=== PATIENT | female | born 1960 | race Caucasian/White ===

== ENCOUNTER 2017-11-14 11:55 | Emergency (ER) | payer OTHER ==
[2017-11-14 12:02] VITALS: TEMP 99.3; BMI 25.2
--- NOTE | 2017-11-14 12:23 | PDOC ---
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 She woke up this morning with chest tightness, throat swelling, and a productive cough. The patient is also complaining of myalgias in her upper extremities. She denies any recent surgeries, hemoptysis, long car rides/plane trips, unilateral swelling. She denies CP but describes whole chest tightness. She denies any SOB, fever, chills, nausea, vomiting, abd pain. Past History - Past Medical History Allergies/Adverse Reactions: Allergies Allergy/AdvReac Type Severity Reaction Status Date / Time No Known Allergies Allergy Unverified 11/14/17 11:56 Home Medications: Ambulatory Orders Dexamethasone 0 mg PO ASDIR 11/14/17 Dexamethasone [Decadron -] 4 mg PO ONCE #10 tablet MDD 1 11/14/17 Enalapril Maleate 5 mg PO DAILY 11/14/17 FENTANYL 25mcg PATCH [DURAGESIC 25mcg PATCH -] 1 each TD Q72H 11/14/17 Gabapentin 300 mg PO TID 11/14/17 Metformin HCl 500 mg PO BID 11/14/17 Oxycodone HCl 5 mg PO TID 11/14/17 Cancer: Yes (tongue, neck lymph nodes) COPD: No Diabetes: Yes HTN: Yes Hypercholesterolemia: Yes - Surgical History Abdominal Surgery: Yes (ovarian cyst) - Suicide/Smoking/Psychosocial Hx Smoking History: Never smoked Have you smoked in the past 12 months: No Information on smoking cessation initiated: No Hx Alcohol Use: No Drug/Substance Use Hx: No Substance Use Type: None Review of Systems - Review of Systems Able to Perform ROS?: Yes Comments:: 11/14/17 13:34 GENERAL/CONSTITUTIONAL: No fever or chills. No weakness. HEAD, EYES, EARS, NOSE AND THROAT: Positive for throat swelling. No change in vision. No ear pain or discharge. No sore throat. GASTROINTESTINAL: No nausea, vomiting, diarrhea, constipation, or abdominal pain. GENITOURINARY: No dysuria, frequency, hematuria, or change in urination. CARDIOVASCULAR: Positive for chest tightness. No chest pain, palpitations, or lightheadedness. RESPIRATORY: Positive for productive cough. No wheezing, shortness of breath, or hemoptysis. MUSCULOSKELETAL: No joint or muscle swelling or pain. No neck or back pain. SKIN: No rash or lesions. NEUROLOGIC: No headache, numbness, tingling, weakness, loss of consciousness, or change in strength/sensation. ENDOCRINE: No increased thirst. No abnormal weight change. HEMATOLOGIC/LYMPHATIC: No anemia, easy bleeding, or history of blood clots. ALLERGIC/IMMUNOLOGIC: No hives or skin allergy. Is the patient limited Latvian proficient: No *Physical Exam - Vital Signs Last Vital Signs Temp Pulse Resp BP Pulse Ox 99.3 F 114 H 18 157/65 97 11/14/17 11:57 11/14/17 11:57 11/14/17 11:57 11/14/17 11:57 11/14/17 11:57 - Physical Exam Comments: 11/14/17 13:38 GENERAL: Well developed, well nourished. Awake and alert. No acute distress. HEENT: Normocephalic, atraumatic. Hearing grossly normal. Moist mucous membranes. PERRLA, EOMI. Nonerythematous, nonexudative oropharnyx. Thrush seen on tongue. NECK: Supple. Full ROM. No JVD. B/l lymphadenopathy. CARDIOVASCULAR: Regular rate and rhythm. No murmurs, rubs, or gallops. PULMONARY: No evidence of respiratory distress. Lungs clear to auscultation bilaterally. No wheezing, rales or rhonchi. ABDOMINAL: Soft. Non-tender. Non-distended. No rebound or guarding. GENITOURINARY: No CVA tenderness bilaterally. MUSCULOSKELETAL: Normal range of motion at all joints. No bony deformities or tenderness. EXTREMITIES: No cyanosis. No clubbing. No edema. No calf tenderness. SKIN: Warm and dry. Normal capillary refill. No rashes. No jaundice. NEUROLOGICAL: Alert, awake, appropriate. Cranial nerves 2-12 intact. Normal speech. Gait is normal without ataxia. PSYCHIATRIC: Cooperative. Good eye contact. Appropriate mood and affect. ED Treatment Course - LABORATORY CBC & Chemistry Diagram: 11/14/17 12:40 11/14/17 12:40 - RADIOLOGY Radiology Studies Ordered: Category Date Time Status CHEST CTA [CT] Stat CT Scan 11/14/17 12:21 Ordered Medical Decision Making - Medical Decision Making 11/14/17 13:57 The patient is a 57F who has a PMH of tongue cancer s/p 3 chemo (last yesterday ) and 2 radiation (last yesterday) sessions. She is presenting with chest tightness and throat swelling. I am concerned for an infectious process 2/2 to her immunocompromised state. I am also concerned for a PE due to hx of cancer and tachycardia. Because she is not able to mount an immune response, I have ordered the septic protocol and chest CTA and neck CT w/o contrast to visualize the airway. The patient's voice is slightly muffled so I am concerned for airway compromise. Will monitor closely. 11/14/17 14:02 Pt has a WBC of 17.7, influenza negative. Pending CT reads. 11/14/17 14:27 Dr. Tejada (ENT) has seen the patient at bedside and scoped them. He does not see any compromise in the patient's airway. He suggests discussed with the patient's rad/onc for further issues with swallowing. 11/14/17 14:31 Chest CTA read: There is no evidence of a pulmonary embolus in the main pulmonary artery and its proximal bifurcations, bilaterally. Multiple calcified mediastinal and bilateral hilar lymph nodes as well as a tiny calcified nodule in the right upper and middle lobe compatible with old granulomatous disease. Mild at atelectatic and bronchiectatic changes in the right middle lobe, medially without gross focal infiltrates. Neck soft tissue read: 1. Posttherapy changes in the neck with mild narrowing of the supraglottic laryngeal airway as described above. 2. Malignant right level 2A lymph node measuring 2.4 x 2.3 cm. 11/14/17 14:42 My attending spoke with the patient's rad/onc who agrees with our plan. We have given steroids. Will d/c the patient with steroids until the patient can follow up with rad/onc. 11/14/17 14:53 I have spoken with Dr. Landa and she would like the patient d/c with 10 days of 4mg of decadron and will f/u with the patient tomorrow. *DC/Admit/Observation/Transfer Diagnosis at time of Disposition: Swallowing difficulty Qualifiers: Dysphagia type: unspecified Qualified Code(s): R13.10 - Dysphagia, unspecified - Discharge Dispostion Disposition: HOME Condition at time of disposition: Stable Admit: No - Referrals Referrals: Candelario Jaramillo MD [Primary Care Provider] - - Patient Instructions Printed Discharge Instructions: DI for Chemotherapy -- Adult Additional Instructions: Please return to the ER if symptoms persist, worsen, or new symptoms arise. Please follow up with Dr. Landa in 2-3 days. Please return to the ER if you have any signs or symptoms of chest pain, shortness of breath, uncontrollable fever, chills, nausea, vomiting, numbness, tingling, or weakness in any part of your body, changes in vision, or slurred speech. Please take your medications as prescribed. - Post Discharge Activity
[2017-11-14] MEDS ORDERED: DEXAMETHASONE SOD PHOSPHATE 20 MG/5 ML VIAL IVPB ONE (12:49)
[2017-11-14 12:59] LABS: BASO % 0.4 % (0-2.0); EOS % 0.2 % (0-4.5); HEMATOCRIT 37.9 % (32.4-45.2); HEMOGLOBIN 12.2 GM/dL (10.7-15.3); LYMPH % 4.9 % (8-40); MCH 29.7 pg (25.7-33.7); MCHC 32.1 g/dl (32.0-36.0); MEAN CELL VOLUME 92.6 fl (80-96); MEAN PLT VOLUME 9.2 fl (7.5-11.1); MONO % 5.2 % (3.8-10.2); NEUT % 89.3 % (42.8-82.8); PLATELET COUNT 366 K/MM3 (134-434); RDW 13.5 % (11.6-15.6); WHITE BLOOD COUNT 17.7 K/mm3 (4.0-10.0)
[2017-11-14 13:08] LABS: INR 1.04 (0.82-1.09); PROTHROMBIN TIME (PATIENT) 11.8 SEC (9.98-11.88)
[2017-11-14] MEDS ORDERED: DEXAMETHASONE SOD PHOSPHATE 10 MG/1 ML VIAL ONE (13:10)
[2017-11-14 13:11] LABS: ACTIVATED PTT 28.3 SECONDS (26.9-34.4)
[2017-11-14 13:17] LABS: ALBUMIN 3.7 g/dl (3.4-5.0); ANION GAP 8 (8-16); BILIRUBIN,TOTAL 0.5 mg/dL (0.2-1.0); BLOOD UREA NITROGEN 14 mg/dL (7-18); CALCIUM 8.9 mg/dL (8.5-10.1); CHLORIDE 104 mmol/L (98-107); CO2 26 mmol/L (21-32); CREATININE 0.7 mg/dL (0.55-1.02); GLUCOSE,RANDOM 121 mg/dL (74-106); POTASSIUM 3.9 mmol/L (3.5-5.1); SGOT/AST 22 U/L (15-37); SGPT/ALT 27 U/L (12-78); SODIUM 138 mmol/L (136-145); TOT PROT 7.4 g/dl (6.4-8.2)
[2017-11-14 13:18] LABS: VENOUS PC02 49.8 mmHg (38-52); VENOUS PH 7.38 (7.32-7.42)
[2017-11-14 13:19] LABS: ALK PHOS 58 U/L (45-117)
[2017-11-14 13:19] LABS: VENOUS PO2 28.2 mmHg (28-48)
--- NOTE | 2017-11-14 13:23 | PDOC ---
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 The patient describes the throat pain as tightness and states she feels her throat is closing up which is preventing her from eating or drinking. The patient denies headache, dizziness, rashes, numbness, or tingling. Denies fever, chills, vomit, diarrhea and constipation. Denies dysuria, frequency, urgency and hematuria. Allergies: NKA Social history: No reported alcohol, cigarette, or drug use. PCP: Dr. Jaramillo - Physicial Exam PE: 11/14/17 13:05 GENERAL: Awake, alert, and fully oriented, in no acute distress HEAD: No signs of trauma EYES: PERRLA, EOMI, sclera anicteric, conjunctiva clear ENT: mild tongue edema, mallampati III. L neck with palpable mass. Mildly muffled speech NECK: L neck with palpable mass LUNGS: Breath sounds equal, clear to auscultation bilaterally. No wheezes, and no crackles HEART: tachy but regular to 107, normal S1 and S2, no murmurs, rubs or gallops ABDOMEN: Soft, nontender, normoactive bowel sounds. No guarding, no rebound. No masses EXTREMITIES: Normal range of motion, no edema. No clubbing or cyanosis. No cords, erythema, or tenderness NEUROLOGICAL: cranial nerves intact, negative pronator drift, 5/5 strength in all 4 extremities, normal sensation to light touch in all 4 extremities, normal cerebellar exam, normal gait, normal reflexes and tone SKIN: Warm, Dry, normal turgor, no rashes or lesions noted. - Medical Decision Making 11/14/17 12:58 57-year-old female with a history of lingular CA with metastases to the throat on radiation and chemotherapy presents with throat pain and swelling as well as chest tightness and productive cough. Vitals remarkable for tachycardia to 116. Exam with mild glossal edema and slightly muffled voice, concerning for airway edema likely 2/2 radiation yesterday. Patient is currently in no respiratory distress, is not tachypneic, and is satting 97% on room air. Will give 10 mg of Decadron and obtain a non-con neck soft tissue CT scan. 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 With regards to chest tightness and tachycardia, there is also concern for pulmonary embolism, patient is high risk. We'll also obtain a CT angiogram of the chest to rule out PE and also to evaluate for other causes of cough and shortness of breath such as pneumonia or fluid overload. 11/14/17 13:[address] Landa ([phone]) from [facility] who is the patient's radiation oncologist. She agreed with our plan to give 10 mg of Decadron and recommends that if the Decadron helps with the edema that we give the patient 4 mg daily until she follows up with her. I also spoke with Dr. Mao from ENT who will come down and scope the patient. CT soft tissue scan of her neck with mild airway narrowing of supraglottic area 11/14/17 14:09 Dr. Tejada at the bedside scoping the patient. Vitals are stable. WBC 17 likely 2/2 daily steroids. CTA negative for PE. 11/14/17 15:[address] Tejada, scope with no edema and clear airway. Pt reports significant improvement in symptoms after steroids and requests DC. Denies chest pain or SOB. Discussed case with Dr. Landa, who agrees with our plan for DC. Gave pt strict return precautions if sxs return. I discussed the physical exam findings, ancillary test results and final diagnoses with the patient. I answered all of the patient's questions. The patient was satisfied with the care received and felt comfortable with the discharge plan and treatment plan. The patient will call their primary care physician within 24 hours to arrange follow-up and will return to the Emergency Department with any new, persistent or worsening symptoms. Heart Score/ECG Review - [place] Comment: 11/14/17 18:51 Twelve-lead EKG was performed and reviewed by me. Sinus tachycardia 107. Normal axis and intervals. No ST elevations.
[2017-11-14 15:11] LABS: URINE APPEARANCE CLEAR; URINE BILIRUBIN NEGATIVE (NEGATIVE); URINE BLOOD NEGATIVE (NEGATIVE); URINE COLOR COLORLESS; URINE GLUCOSE (UA) NEGATIVE (NEGATIVE); URINE KETONE NEGATIVE (NEGATIVE); URINE LEUK ESTERASE NEGATIVE (NEGATIVE); URINE NITRITE NEGATIVE (NEGATIVE); URINE PROTEIN NEGATIVE (NEGATIVE); URINE UROBILINOGEN NEGATIVE mg/dL (0.2-1.0)
[2017-11-14 15:20] VITALS: BP 129/74; PULSE 95
--- NOTE | 2017-11-15 10:29 | EKG ---
Test Reason : Blood Pressure : / mmHG Vent. Rate : 107 BPM Atrial Rate : 107 BPM P-R Int : 122 ms QRS Dur : 080 ms QT Int : 306 ms P-R-T Axes : 044 040 021 degrees QTc Int : 408 ms SINUS TACHYCARDIA POSSIBLE LEFT ATRIAL ENLARGEMENT LOW VOLTAGE QRS WHEN COMPARED WITH ECG OF 13-JUN-1999 05:30, NO SIGNIFICANT CHANGE WAS FOUND Confirmed by LIZZ FLOWER MD ([id number]) on 11/15/2017 10:28:48 AM Referred By: Confirmed By:LIZZ FLOWER MD
--- NOTE | 2017-11-15 10:45 | CON.ENT ---
Consult Consult Specialty:: ENT Referred by:: Jese Reason for Consultation:: Pt with tongue cancer and neck dissection, s/p RT 2nd does . She developed SOB and sensation throat is closing - History of Present Illness Chief Complaint: Pt with tongue cancer and neck dissection, s/p RT 2nd does . She developed SOB and sensation throat is closing. History of Present Illness: Pt with tongue cancer and neck dissection, s/p RT 2nd does . She developed SOB and sensation throat is closing. She was dx in 05/27, and had neck dissection and local resection. She was JORDAN, but recurred in Sep 2017, and is getting chemo / RT protocol. She has had 2 doses of RT. She has some wound breakdown at surgery site - History Source History Provided By: Patient, Family Member Limitations to Obtaining History: No Limitations - Alcohol/Substance Use Hx Alcohol Use: No - Smoking History Smoking history: Never smoked Have you smoked in the past 12 months: No Home Medications - Allergies Allergies/Adverse Reactions: Allergies Allergy/AdvReac Type Severity Reaction Status Date / Time No Known Allergies Allergy Unverified 11/14/17 11:56 - Home Medications Home Medications: Ambulatory Orders Dexamethasone 0 mg PO ASDIR 11/14/17 Dexamethasone [Decadron -] 4 mg PO ONCE #10 tablet MDD 1 11/14/17 Enalapril Maleate 5 mg PO DAILY 11/14/17 FENTANYL 25mcg PATCH [DURAGESIC 25mcg PATCH -] 1 each TD Q72H 11/14/17 Gabapentin 300 mg PO TID 11/14/17 Metformin HCl 500 mg PO BID 11/14/17 Oxycodone HCl 5 mg PO TID 11/14/17 Physical Exam-ENT Vital Signs: Vital Signs Temperature 99.3 F 11/14/17 11:57 Pulse Rate 95 H 11/14/17 15:19 Respiratory Rate 18 11/14/17 15:19 Blood Pressure 129/74 11/14/17 15:19 O2 Sat by Pulse Oximetry (%) 99 11/14/17 15:19 Constitutional: Yes: Well Nourished Head: Yes: WNL, Atraumatic Face: Yes: WNL, Symmetrical Eyes: Yes: WNL, Conjunctiva Clear Nose: Yes: WNL Nasal Passage: Yes: WNL Oral/Pharynx: Yes: Other (left partial glossectomy , no edema or masses visible in oral cavity. No trismus) Outer Ear: Yes: WNL Neck: Yes: Other (Left neck dissection scar with perhaps a suture site breaking down. She has the sunburn look of RT. No gross LN) Imaging - Results Cat Scan: Report Reviewed (direct vision of supraglottis did not show significant narrowing of airway, possibly improved by decadron. I also could not feel the right LN) Problem List - Problems (1) Throat cancer Assessment/Plan: Steroid taper f/u with treating RT and ENT. If this keeps recurring, a prophylactic trach may be needed for continued RT Code(s): C14.0 - MALIGNANT NEOPLASM OF PHARYNX, UNSPECIFIED Procedure Note Procedure: Fiberoptic laryngoscopy via right nares after lido/afrin nasal spray revealed normal epiglottis, mild arytenoid edema bilat. TVC visible and mobile, no masses or obstruction of base of tongue.
== END 2017-11-14 15:20 | disposition home or self-care (01) ==
LOC: JER 11:55
PROC: 3E0333Z Introduction of Anti-inflammatory into Peripheral Vein, Percutaneous Approach (ICD-10-PCS; principal; 2017-11-14)
DX: C02.9 Malignant neoplasm of tongue, unspecified (principal); C77.0 Secondary and unspecified malignant neoplasm of lymph nodes of head, face and neck; I10 Essential (primary) hypertension; E11.9 Type 2 diabetes mellitus without complications; E78.00 Pure hypercholesterolemia, unspecified; Z79.84 Long term (current) use of oral hypoglycemic drugs
CPT/HCPCS: 36415; 70490-TC; 71045-TC; 71275-TC; 80053; 81003; 82550; 82803; 83605; 84484; 85025; 85610; 85730; 86850; 86900; 86901; 87040; 87086; 87804; 93005; 93010; 99283-25

== ENCOUNTER 2019-09-20 16:38 | Emergency (ER) | payer OTHER ==
[2019-09-20 16:53] VITALS: BMI 18.1
--- NOTE | 2019-09-20 17:46 | PDOC ---
History of Present Illness - General Chief Complaint: Pain Stated Complaint: PAIN Time Seen by Provider: 09/20/19 17:09 History Source: Patient Exam Limitations: No Limitations - History of Present Illness Initial Comments: 09/20/19 17:39 Ivis Araiza is a 59F with PMH head/neck (lingular) cancer with metastases to the throat and severe lymphadenopathy to the mediastinum presents with LUE swelling and numbness highly concerning for a vascular occlusion. Patient presents with daughter who is highly involved in her care. Patient is 1.5 weeks s/p 5th round of radiation therapy, and 3 weeks s/p protein inhibitor therapy. Has been at home in bed recovering from radiation, feels sick overall, denies new fever/chills/nausea/vomiting/abdominal pain. Not on any anticoagulation therapy. 3 hours [employer] patient noticed new onset 9/10 pain to LUE associated with numbness , swelling, and redness, now presenting to ED for evaluation. Past History - Past Medical History Allergies/Adverse Reactions: Allergies Allergy/AdvReac Type Severity Reaction Status Date / Time broccoli Allergy Verified 09/20/19 16:53 Home Medications: Ambulatory Orders Dexamethasone 0 mg PO ASDIR 11/14/17 Dexamethasone [Decadron -] 4 mg PO ONCE #10 tablet MDD 1 11/14/17 Enalapril Maleate 5 mg PO DAILY 11/14/17 FENTANYL 25mcg PATCH [DURAGESIC 25mcg PATCH -] 1 each TD Q72H 11/14/17 Gabapentin 300 mg PO TID 11/14/17 Oxycodone HCl 5 mg PO TID 11/14/17 metFORMIN HCL [Metformin HCl] 500 mg PO BID 11/14/17 Cancer: Yes (tongue, neck lymph nodes) COPD: No Diabetes: Yes HTN: Yes Hypercholesterolemia: Yes Other medical history: radiation finished last week 09/2019 - Surgical History Abdominal Surgery: Yes (ovarian cyst) - Psycho Social/Smoking Cessation Hx Smoking History: Never smoked Have you smoked in the past 12 months: No Hx Alcohol Use: No Drug/Substance Use Hx: No Substance Use Type: None Review of Systems - Review of Systems Able to Perform ROS?: Yes Constitutional: No: Chills, Fever HEENTM: Yes: Other (dysarthria). No: Symptoms Reported Respiratory: No: Symptoms reported Cardiac (ROS): No: Symptoms Reported ABD/GI: Yes: Blood Streaked Bowels, Diarrhea. No: Nausea, Vomiting : No: Symptoms Reported Musculoskeletal: No: Symptoms Reported Integumentary: Yes: Flushing, Lesions, Pallor Neurological: Yes: Numbness, Tingling, Weakness Endocrine: No: Symptoms Reported Hematologic/Lymphatic: No: Blood Clots, Easy Bleeding, Easy Bruising, Bleeding Diathesis All Other Systems: Reviewed and Negative *Physical Exam - Vital Signs Last Vital Signs Temp Pulse Resp BP Pulse Ox 97.9 F 132 H 18 124/84 97 09/20/19 16:50 09/20/19 16:50 09/20/19 16:50 09/20/19 16:50 09/20/19 16:50 - Physical Exam General Appearance: Yes: Nourished, Appropriately Dressed, Apparent Distress, Mild Distress, Cachetic HEENT: positive: EOMI, EMILY, Normal Voice, Symmetrical, Pharynx Normal (dry mouth). negative: Photophobia, Scleral Icterus (R), Scleral Icterus (L), Pharyngeal Erythema, Tonsillar Exudate, Tonsillar Erythema Neck: positive: Trachea midline, Normal Thyroid, Supple, Other (skin tightening at neck). negative: Tender, Decreased range of motion Respiratory/Chest: positive: Lungs Clear, Normal Breath Sounds. negative: Chest Tender, Respiratory Distress, Accessory Muscle Use, Crackles, Rales, Rhonchi, Stridor, Wheezing Cardiovascular: positive: Regular Rhythm, Regular Rate. negative: Murmur Gastrointestinal/Abdominal: positive: Normal Bowel Sounds, Flat, Soft. negative : Tender, Pulsatile Mass, Guarding, Rebound, Hernia, Mass Musculoskeletal: positive: Normal Inspection, CVA Tenderness Extremity: positive: Pelvis Stable, Other (LUE swelling, rubor, calor noted to mid brachial region, decreased motor strength, sensation, and radial pulse strenght compared to right side, decreased capillary refill, full ROM, non- tender to palpation) Integumentary: positive: Dry, Warm, Mottled (LUE), Swelling (LUE). negative: Normal Color Neurologic: positive: Fully Oriented, Alert, Normal Mood/Affect, Normal Response ED Treatment Course - LABORATORY CBC & Chemistry Diagram: 09/20/19 18:31 09/20/19 18:31 - RADIOLOGY Radiology Studies Ordered: Category Date Time Status CHEST PA & LAT [RAD] Stat Radiology 09/20/19 17:35 Ordered Medical Decision Making - Medical Decision Making 09/20/19 17:39 Ivis Araiza is a 59F with PMH head/neck (lingular) cancer with metastases to the throat and severe lymphadenopathy to the mediastinum presents with sudden onset LUE swelling and numbness highly concerning for a vascular occlusion. Presentation highly concerning for an arterial or venous occlusion to the left arm, has numbness and swelling with rubor and calor. Immediately brought patient to US for a duplex of her LUE. Will evaluate further via: LUE Duplex US ECG CXR CMP CBC Coags UA/UC 09/20/19 20:20 US reveals no aterial occlusion, but has venous occlusion in LUE in L IJ, SC, and axilliary veins. ECG shows snius tachycardia, HR 130, QTc 432, new TWI in II, aVF, V4-V6, old TWI at III. Consulted Dr. Sandeep Jiang, the heme/onc fellow at [facility] in lieu of Dr. Jill Marrero, would like to have patient stay here overnight for heparinization and transfer in the AM to [facility] if possible per oncology preference. Consulted Dr. Mike with vascular surgery, recommends heparinization, no arterial occlusion, does not require thrombectomy. Ordering CT head for r/o brain mets before starting heparin drip, 80U/kg (3600U ) bolus with 18U/kg/hr (800U/hr) drip. 09/20/19 22:37 CT head read shows no ICH or mass lesion, but unable to see metastases to head well without contrast. No obvious lesions, patient requires heparinization AVA, will start heparin bolus and infusion. Patient requires admission for heparin drip and monitoring overnight, PMD Jill Marrero would prefer if patient would come to [facility] in the morning but patient has no acute oncological needs at this time requiring immediate transfer. 09/20/19 22:55 Patient signed out to LUCAS Sharp for admission to the [facility] under neno Vega in the AM. 09/21/19 01:56 Patient re-evaluated by LUCAS Sharp at bedside, patient's arm has worsening swelling and pallor/mottling, not responding to heparin. Discussed with patient and daughter, requires transfer to [facility] for possible vascular intervention given that this is not readily available here. Called [facility], spoke to Dr. Spaulding with vascular surgery who accepts patient, will be transferred to ED. Patient and at bedsides consent to transfer, Giving 2mg more morphine for pain control. EMS arrived now. Discharge - Discharge Information Problems reviewed: Yes Clinical Impression/Diagnosis: Venous thromboembolism (VTE) confirmed by diagnostic testing Condition: Stable Disposition: TRANSFER ACUTE CARE/OTHER HOSP - Follow up/Referral - Patient Discharge Instructions - Post Discharge Activity
[2019-09-20 18:41] LABS: BASO % 0.5 % (0-2.0); EOS % 0.1 % (0-4.5); HEMATOCRIT 35.9 % (32.4-45.2); HEMOGLOBIN 11.3 GM/dL (10.7-15.3); LYMPH % 1.3 % (8-40); MCH 26.9 pg (25.7-33.7); MCHC 31.5 g/dl (32.0-36.0); MEAN CELL VOLUME 85.4 fl (80-96); MEAN PLT VOLUME 8.7 fl (7.5-11.1); MONO % 4.4 % (3.8-10.2); NEUT % 93.7 % (42.8-82.8); PLATELET COUNT 546 K/MM3 (134-434); WHITE BLOOD COUNT 19.3 K/mm3 (4.0-10.0)
[2019-09-20 18:48] LABS: INR 1.54 (0.83-1.09); PROTHROMBIN TIME (PATIENT) 18.3 SEC (9.7-13.0)
[2019-09-20 18:51] LABS: ACTIVATED PTT 27.8 SECONDS (25.2-36.5)
[2019-09-20] MEDS ORDERED: HEPARIN NA (PORCINE) 5,000 UNITS/ML 1ML VIAL IVPUSH PRN ×2 (19:57→22:30)
[2019-09-20] MEDS ORDERED: HEPARIN - 25,000 UNIT in SODIUM CHLORIDE 495 ML IV SCH ×2 (20:00→22:45)
[2019-09-20 20:31] LABS: ALBUMIN 2.3 g/dl (3.4-5.0); ALK PHOS 156 U/L (45-117); ANION GAP 9 MMOL/L (8-16); BILIRUBIN,TOTAL 0.4 mg/dL (0.2-1); BLOOD UREA NITROGEN 25.1 mg/dL (7-18); CALCIUM 10.9 mg/dL (8.5-10.1); CHLORIDE 102 mmol/L (98-107); CO2 23 mmol/L (21-32); GLUCOSE,RANDOM 166 mg/dL (74-106); POTASSIUM 5.8 mmol/L (3.5-5.1); SGOT/AST 44 U/L (15-37); SGPT/ALT 20 U/L (13-61); SODIUM 134 mmol/L (136-145); TOT PROT 7.2 g/dl (6.4-8.2)
[2019-09-20] MEDS ORDERED: ONDANSETRON 4 MG/2 ML VIAL IVPUSH ONE (20:41)
[2019-09-20 21:18] LABS: MACROCYTOSIS 1+; PLATELET ESTIMATE INCREASED
[2019-09-20] MEDS ORDERED: ACETAMINOPHEN 1000 MG/100 ML VIAL (NON FORMULARY) IVPB ONE (21:24)
[2019-09-20] MEDS ORDERED: ONDANSETRON 4 MG/2 ML VIAL ONE (21:52)
[2019-09-20] MEDS ORDERED: ACETAMINOPHEN INJECTION 100 ML IVPB ONE (21:52)
[2019-09-20] MEDS ORDERED: morphine CARPU-JECT 4 MG/1 ML DISP.SYRIN IVPUSH ONE (22:29)
--- NOTE | 2019-09-20 22:36 | PDOC ---
Documentation entered by Jannie Potter SCRIBE, acting as scribe for Jill Baxter MD. Jill Baxter MD: This documentation has been prepared by the blancaibe, Jannie Potter SCRIBE, under my direction and personally reviewed by me in its entirety. I confirm that the documentation accurately reflects all work, treatment, procedures, and medical decision making performed by me. Attending Attestation - Resident Resident Name: Stan Pascual - ED Attending Attestation I have performed the following: I have examined & evaluated the patient, The case was reviewed & discussed with the resident, I agree w/resident's findings & plan, Exceptions are as noted - HPI HPI: 09/20/19 17:36 59-year-old female brought in by her daughter because she developed sudden left arm swelling several hours ago HPI patient has had neck cancer that metastasized to the chest and she is undergoing 5 rounds of radiotherapy. Her last radiation therapy was 1 1/2 weeks ago at [facility]. - Physicial Exam PE: 09/20/19 18:52 A cachetic 59-year-old female presents with sudden left arm swelling and pain head ncat neck supple lungs no rales,no wheezing cvs [id number] abdomen flat,nontender Extremitites swollen left arm, sl modeled arm no LE edema neuro alert,conversant - Medical Decision Making 09/20/19 18:56 Concern for arterial stenosis or DVT/US done 09/20/19 20:22 Arterial duplex of upper extremity is negaitve for any arterial dissection or stenosis or occlusion 09/20/19 22:31 ct scan head no metastasis evident Duplex doppler of lef arm is positive for DVT Vascular surgery Dr. Mike is consulted and recommended heparin Duplex Dopplers positive for DVT in the left internal jugular vein, left subclavian vein and left axillary vein pt admitted to med/surg
[2019-09-20] MEDS ORDERED: MORPHINE SULFATE 2 MG/ML VIAL ONE (23:10)
[2019-09-20] MEDS ORDERED: HEPARIN INFUSION - 25,000 UNITS/500 ML INFUS.BAG IVPB ONE (23:12)
--- NOTE | 2019-09-20 23:50 | HP ---
Admitting History and Physical - Smoking History Smoking history: Never smoked Have you smoked in the past 12 months: No - Alcohol/Substance Use Hx Alcohol Use: No Home Medications - Allergies Allergies/Adverse Reactions: Allergies Allergy/AdvReac Type Severity Reaction Status Date / Time jesús Allergy Verified 09/20/19 16:53 - Home Medications Home Medications: Ambulatory Orders Dexamethasone 0 mg PO ASDIR 11/14/17 Dexamethasone [Decadron -] 4 mg PO ONCE #10 tablet MDD 1 11/14/17 Enalapril Maleate 5 mg PO DAILY 11/14/17 FENTANYL 25mcg PATCH [DURAGESIC 25mcg PATCH -] 1 each TD Q72H 11/14/17 Gabapentin 300 mg PO TID 11/14/17 Oxycodone HCl 5 mg PO TID 11/14/17 metFORMIN HCL [Metformin HCl] 500 mg PO BID 11/14/17 Physical Examination Vital Signs: Vital Signs Temperature 97.9 F 09/20/19 16:50 Pulse Rate 132 H 09/20/19 16:50 Respiratory Rate 18 09/20/19 16:50 Blood Pressure 124/84 09/20/19 16:50 O2 Sat by Pulse Oximetry (%) 97 09/20/19 16:50 Labs: CBC, BMP 09/20/19 18:31 09/20/19 18:31 Problem List - Problems (1) Acute thrombosis of left internal jugular vein Code(s): I82.C12 - ACUTE EMBOLISM AND THROMBOSIS OF LEFT INTERNAL JUGULAR VEIN (2) Acute thrombosis of left axillary vein Code(s): I82.A12 - ACUTE EMBOLISM AND THROMBOSIS OF LEFT AXILLARY VEIN (3) Acute thrombosis of left subclavian vein Code(s): I82.B12 - ACUTE EMBOLISM AND THROMBOSIS OF LEFT SUBCLAVIAN VEIN (4) Head and neck cancer Code(s): C76.0 - MALIGNANT NEOPLASM OF HEAD, FACE AND NECK (5) HTN (hypertension) Code(s): I10 - ESSENTIAL (PRIMARY) HYPERTENSION (6) Diabetes mellitus Code(s): E11.9 - TYPE 2 DIABETES MELLITUS WITHOUT COMPLICATIONS
[2019-09-21] MEDS ORDERED: MORPHINE SULFATE 2 MG/ML VIAL IVPUSH PRN (00:41)
--- NOTE | 2019-09-21 01:24 | HOSP ---
Subjective - Review of Symptoms Events since last encounter: Hospitalist Encounter After assessing patient in the ED, for admission for Acute Thrombosis of LIJ, L - Subclavian Vein, L- Axillary Vein, who is on a Heparin Drip and was given a bolus. The left arm is grossly edematous, hard, and mottled. The patient is having parasthesias and continued pain 7/10 after receiving Morphine Sulfate IV. This is concerning for Compartment Syndrome. Discussed findings with Dr. Jill Baxter, who agreed and will transfer patient to a tertiary facility for further evaluation and care. Called patient's daughter, Ms. Brenna Araiza and updated her on the plan, she is amendable to the transfer. Subjective: Home Medication List (confirmed by pts daughter) Alcometasone 0.05% topical Amlactin 12% top lotion Aquaphor topical Carafate 1g/10ml oral suspension Clobetasol 0.025% topical Folic Acid 1mg po QD Lidocaine Viscous 2% solution Magonate 54mg/5ml po QD Multi-betic oral tab QD Naproxen Sodium 500mg po prn Nystatin 27876 IU/ml (oral susp) Omeprazole 20mg po QD Synthroid 75mcg po QD Vit B12 po QD Vit D3 2000 IU po QD Zofran 8mg po prn Musculoskeletal: Yes: Extremity Pain, Other (left arm pain and swelling) Neurological: Yes: Numbness Physical Examination Vital Signs: Vital Signs Temperature 97.9 F 09/20/19 16:50 Pulse Rate 132 H 09/20/19 16:50 Respiratory Rate 18 09/20/19 16:50 Blood Pressure 124/84 09/20/19 16:50 O2 Sat by Pulse Oximetry (%) 97 09/20/19 16:50 Constitutional: Yes: Moderate Distress, Thin Eyes: Yes: WNL, Conjunctiva Clear, EOM Intact, PERRL HENT: Yes: Atraumatic, Normocephalic Cardiovascular: Yes: Regular Rate and Rhythm, S1, S2 Respiratory: Yes: WNL, Regular, CTA Bilaterally Gastrointestinal: Yes: WNL Breast(s): Yes: WNL Extremities: Yes: Cool (left arm- left hand), Other (mottled from mid upper arm - left hand) Peripheral Pulses: Left Radial: 1+ (faint), Right Radial: 2+, Left Doralis Pedis : 2+, Right Dorsalis Pedis: 2+ Neurological: Yes: WNL, Alert, Oriented, Cran Nerves II-XII Intact Psychiatric: Yes: WNL, Alert, Oriented Labs: CBC, BMP 09/20/19 18:31 09/20/19 18:31 Laboratory Results - last 24 hr 09/20/19 09/20/19 09/20/19 18:31 18:31 18:31 WBC 19.3 H RBC 4.20 Hgb 11.3 Hct 35.9 MCV 85.4 MCH 26.9 MCHC 31.5 L RDW 14.0 Plt Count 546 H D MPV 8.7 Absolute Neuts (auto) 18.1 H Neutrophils % 93.7 H Neutrophils % (Manual) 89.0 H Band Neutrophils % 5.0 Lymphocytes % 1.3 L D Lymphocytes % (Manual) 0.0 L Monocytes % 4.4 Monocytes % (Manual) 5 Eosinophils % 0.1 Eosinophils % (Manual) 0.0 Basophils % 0.5 Basophils % (Manual) 1.0 Myelocytes % (Man) 0 Promyelocytes % (Man) 0 Blast Cells % (Manual) 0 Nucleated RBC % 0 Metamyelocytes 0 Hypochromia 0 Platelet Estimate Increased Platelet Comment Present Polychromasia 1+ Poikilocytosis 0 Macrocytosis 1+ PT with INR 18.30 H INR 1.54 H PTT (Actin FS) 27.8 Sodium 134 L Potassium 5.8 H Chloride 102 Carbon Dioxide 23 Anion Gap 9 BUN 25.1 H Creatinine 1.0 Est GFR (CKD-EPI)AfAm 70.42 Est GFR (CKD-EPI)NonAf 60.76 Random Glucose 166 H Calcium 10.9 H Total Bilirubin 0.4 AST 44 H ALT 20 Alkaline Phosphatase 156 H Creatine Kinase 110 Troponin I < 0.02 Total Protein 7.2 Albumin 2.3 L Intake & Output 09/18/19 09/19/19 09/20/19 09/21/19 23:59 23:59 23:59 23:59 Weight 44.906 kg Current Medications Generic Name Dose Route Start Last Admin Trade Name Freq PRN Reason Stop Dose Admin Heparin Sodium (Porcine) 3,600 unit 09/20/19 22:30 Heparin - IVPUSH PRN PRN Heparin Heparin Sodium (Porcine) 25, 500 mls @ 16 mls/hr 09/20/19 22:45 09/20/19 23: 08 000 unit/ Sodium Chloride IV 800 unit/hr TITR NICOLETTE 16 mls/hr Administration Protocol 800 UNIT/HR Hospitalist Encounter Assessment: This is a 59 y/o woman with a PMHx of Head/Neck Ca with Mets Throat (RT 5 rounds last dose 10 days, Chemo), HTN, DM. Who presents to the ED with her daughter for sudden onset left arm pain, swelling. Per the daughter she went in to give her meds and the patient complained of pain and swelling. The daughter called the patient's Oncologist Dr. Blanca Marrero, who advised her to take her to the nearest ED for Heparin Drip for suspected Thrombosis. Per the daughter during the morning, the arm was not swollen and the patient did not have any pain. The patient denies fall or trauma. Patient denies fever, chills, dizziness , GUERRA, SOB, CP, palpitations, AP, V/D, constipation, dysuria Outcome: Patient was accepted to [facility] Critical Care Total Critical Care Time (in minutes): 35 Critical Care Statement: The care of this patient involved high complexity decision making to prevent further life threatening deterioration of the patient 's condition and/or to evaluate & treat vital organ system(s) failure or risk of failure.
[2019-09-21 02:58] VITALS: BP 100/73; PULSE 115
[2019-09-21 03:11] VITALS: TEMP 98.7
--- NOTE | 2019-09-22 11:25 | EKG ---
Test Reason : Blood Pressure : / mmHG Vent. Rate : 130 BPM Atrial Rate : 130 BPM P-R Int : 114 ms QRS Dur : 066 ms QT Int : 294 ms P-R-T Axes : 045 064 -75 degrees QTc Int : 432 ms SINUS TACHYCARDIA POSSIBLE LEFT ATRIAL ENLARGEMENT T WAVE ABNORMALITY, CONSIDER INFEROLATERAL ISCHEMIA ABNORMAL ECG WHEN COMPARED WITH ECG OF 14-NOV-2017 12:20, T WAVE INVERSION NOW EVIDENT IN INFERIOR LEADS T WAVE INVERSION NOW EVIDENT IN LATERAL LEADS Confirmed by MD Lucian, Emiliano ([id number]) on 09/22/2019 11:24:49 AM Referred By: Confirmed By:Emiliano Epstein MD
== END 2019-09-21 03:12 | disposition short-term general hospital (02) ==
LOC: JER 16:38 → JERBED 17:38 → UNDOADMIN 17:38
PROC: 3E033NZ Introduction of Analgesics, Hypnotics, Sedatives into Peripheral Vein, Percutaneous Approach (ICD-10-PCS; principal; 2019-09-20)
PROC: 3E033NZ Introduction of Analgesics, Hypnotics, Sedatives into Peripheral Vein, Percutaneous Approach (ICD-10-PCS; 2019-09-20)
PROC: 3E033GC Introduction of Other Therapeutic Substance into Peripheral Vein, Percutaneous Approach (ICD-10-PCS; 2019-09-20)
DX: I82.A12 Acute embolism and thrombosis of left axillary vein (principal); I82.B12 Acute embolism and thrombosis of left subclavian vein; I82.C12 Acute embolism and thrombosis of left internal jugular vein; C76.0 Malignant neoplasm of head, face and neck; C14.0 Malignant neoplasm of pharynx, unspecified; I11.0 Hypertensive heart disease with heart failure; E11.9 Type 2 diabetes mellitus without complications; Z79.84 Long term (current) use of oral hypoglycemic drugs; E78.00 Pure hypercholesterolemia, unspecified; Z91.018 Allergy to other foods
CPT/HCPCS: 36415; 70450-TC; 71046-TC-FY; 80053; 82550; 84484; 85025; 85610; 85730; 93005; 93010; 93931; 93971; 99284-25; J0131; J1644